=== PATIENT | male | born 1975 ===

== ENCOUNTER 2018-10-06 03:42 | Outpatient (CLI) | payer MEDICAID, SELFPAY ==
--- NOTE | 2018-10-06 11:00 | DI.RAD_ITS ---
SYMPTOMS/DIAGNOSIS: UPPER BACK AND NECK PAIN, M54.2, M54.9 CERVICAL SPINE: AP, lateral, oblique and open mouth odontoid projections were obtained. The vertebral bodies are intact. There is perhaps subtle narrowing of the C 4 - 5 disc interspace. The neural canal and neural foramen appear widely patent. The posterior elements are intact. The odontoid is closely applied to the anterior arch of C 1 and appears unremarkable. The prevertebral soft tissues are well maintained. SUMMARY: Question slight narrowing of the C 4 - 5 disc interspace. Otherwise unremarkable C-spine series. THORACIC SPINE: The vertebral bodies are intact. There is some disc space narrowing noted at multiple levels in the upper dorsal spine where very mild hypertrophic bony changes are evident. Also there is some disc narrowing at T 10 - 11 where mild endplate changes are also identified. The posterior elements are intact. The paravertebral soft tissues are well maintained. SUMMARY: Mild degenerative changes involving the dorsal spine are identified.
== END 2018-10-06 04:02 ==
PROVIDERS: PCP Nurse Practitioner; Visit Provider Nurse Practitioner
DX: M54.2 Cervicalgia (principal); M54.6 Pain in thoracic spine; M50.321 Other cervical disc degeneration at C4-C5 level; M51.34 Other intervertebral disc degeneration, thoracic region
CPT/HCPCS: 72050; 72072

== ENCOUNTER 2020-02-24 18:07 | Outpatient (REF) | payer MEDICAID, SELFPAY ==
[2020-02-24 23:54] LABS: ALT 49 U/L (16-63); AST 40 U/L (15-37); Calculated LDL 162 mg/dL (<100); Cholesterol 236 mg/dL (<200); HDL Cholesterol 42 mg/dL (40-60); Triglyceride 162 mg/dL (<150)
[2020-02-27 09:12] LABS: Vitamin D 25 Total 41.9 ng/ml (30-100)
== END 2020-02-24 18:27 ==
LOC: NCHCN 18:07
PROVIDERS: PCP Nurse Practitioner; Visit Provider Nurse Practitioner Family
DX: F10.11 Alcohol abuse, in remission (principal); E55.9 Vitamin D deficiency, unspecified
CPT/HCPCS: 80061; 82306; 84450; 84460

== ENCOUNTER 2021-08-13 15:22 | Outpatient (REF) | payer OTHER, SELFPAY ==
[2021-08-13 21:38] LABS: HCT 42.5 % (40.0-50.0); HGB 13.9 g/dL (13.5-17.5); MCH 28.7 pg (27.0-33.0); MCHC 32.7 % (32.0-36.0); MCV 87.6 fL (80-95); MPV 9.3 fL (8.0-11.0); Platelet Count 243 10^3/uL (130-400); RBC 4.85 10^6/uL (4.36-5.78); RDW 12.4 % (11.8-14.1); RDW-SD 39.8 fL; WBC 7.48 10^3/uL (4.4-10.8)
[2021-08-13 21:55] LABS: Anion Gap 5.9 mmol/L (3-11); BUN 16 mg/dL (7-18); CO2 30.1 mmol/L (21.0-32.0); CREATININE 0.9 mg/dL (0.70-1.30); Calcium 9.6 mg/dL (8.5-10.1); Chloride 103 mmol/L (98-107); Glucose 95 mg/dL (74-106); Potassium 4.2 mmol/L (3.5-5.1); Sodium 139 mmol/L (136-145); TSH (W/Ref FT4) 1.19 uIU/mL (0.36-3.74)
== END 2021-08-13 15:23 | disposition home or self-care (01) ==
LOC: NCHCN 15:22
PROVIDERS: PCP Nurse Practitioner; Visit Provider Nurse Practitioner Family
DX: F41.8 Other specified anxiety disorders (principal); E55.9 Vitamin D deficiency, unspecified; G47.00 Insomnia, unspecified
CPT/HCPCS: 80048; 82306; 85027; 84443